=== PATIENT | male | born 1960 | race American Indian/Alaskan Native ===

== ENCOUNTER 2019-07-26 16:55 | Emergency (ER) | payer OTHER ==
[2019-07-26 18:57] LABS: Basophils % (Auto) 0.4 % (0.0-1.8); Eosinophils % (Auto) 0.4 % (0.0-4.3); Hematocrit 42.9 % (35.5-45.6); Hemoglobin 14.7 gm/dl (11.8-15.2); Lymphocytes # (Auto) 0.8 K/mm3 (1.2-5.4); Lymphocytes % (Auto) 20.4 % (13.4-35.0); Mean Corpuscular HGB Conc 34 % (32-34); Mean Corpuscular Volume 91 fl (84-94); Monocytes # (Auto) 0.2 K/mm3 (0.0-0.8); Monocytes % (Auto) 4.3 % (0.0-7.3); Platelet Count 194 K/mm3 (140-440); Red Blood Count 4.72 M/mm3 (3.65-5.03); Red Cell Distribution Width 12.8 % (13.2-15.2)
[2019-07-26 19:14] LABS: Alanine Aminotransferase 16 units/L (7-56); Albumin 4.4 g/dL (3.9-5); BUN/Creatinine Ratio 13; Blood Urea Nitrogen 10 mg/dL (9-20); Calcium 9.4 mg/dL (8.4-10.2); Hemolysis Index 15
[2019-07-26] MEDS ORDERED: METOCLOPRAMIDE 10 MG/2 ML INJ IV ONE (19:46)
[2019-07-26] MEDS ORDERED: SODIUM CHLORIDE 0.9% 1000 ML 1,000 ML IV ONE (19:46)
[2019-07-26] MEDS ORDERED: FAMOTIDINE 20 MG/2 ML INJ IV ONE (19:46)
[2019-07-26] MEDS ORDERED: diphenhydrAMINE 50 MG/ML VIAL IV ONE (19:46)
[2019-07-26] MEDS ORDERED: KETOROLAC 30 MG/1 ML INJ IV ONE (20:40)
--- NOTE | 2019-07-26 20:49 | Emergency Department Report ---
ED N/V/D HPI - General Chief complaint: Abdominal Pain Stated complaint: ABD PAIN Source: patient, EMS Mode of arrival: Wheelchair Limitations: No Limitations - History of Present Illness Initial comments: Patient is a 58-year-old -[place] male with no past medical history who presents to the ED with complaint of acute onset persistent intermittent nausea and vomiting and epigastric pain with persistent headache and generalized weakness for the last 12 hours. Patient states that almost 24 hours ago he returned from work and bought a sandwich at a restaurant and proceeded to eat the same sandwich. Patient states that about 12 hours ago when he woke up he started having persistent nausea and vomiting, epigastric pain and diarrhea. Patient states that the symptoms have been persistent and that he has not been able to keep anything down despite drinking Sprite. Patient denies dizziness, syncope, fever, chills, cough, chest pain, shortness of breath, change in vision or syncope, back pain or neck pain, dysuria, urinary frequency and urgency, hematochezia or hematemesis. MD complaint: nausea, vomiting, abdominal pain, other (Headache and generalized weakness) -: Sudden, hour(s) (12) Description of Vomiting: food contents, watery Description of Diarrhea: water Associated Abdominal Pain: Yes (Mildly epigastric) Location: epigastric Radiation: none Pain Scale: 6 Quality: aching, dull Improves with: none Worsens with: vomiting Context: possible food poisoning Associated Symptoms: denies other symptoms, myalgias, headaches, loss of appetite, malaise, nausea/vomiting. denies: chest pain, cough, diaphoresis, fever/chills, rash, dysuria, shortness of breath, syncope, weakness, other - Related Data Previous Rx's Medication Instructions Recorded Last Taken Type Butalb/Acetamin/Caff 50-325-40 1 - 2 tab PO Q6HR PRN #12 tab 07/26/19 Unknown Rx [Fioricet 50-325-40] Dicyclomine [Bentyl] 20 mg PO Q6H PRN #24 tablet 07/26/19 Unknown Rx Famotidine [Pepcid] 20 mg PO Q12H #30 tablet 07/26/19 Unknown Rx Ondansetron [Zofran Odt] 4 mg PO Q6HR PRN #20 tab.rapdis 07/26/19 Unknown Rx Allergies Allergy/AdvReac Type Severity Reaction Status Date / Time No Known Allergies Allergy Unverified 07/26/19 16:58 ED Review of Systems ROS: Stated complaint: ABD PAIN Other details as noted in HPI Constitutional: denies: chills, fever Eyes: denies: eye pain, eye discharge, vision change ENT: denies: ear pain, throat pain Respiratory: denies: cough, shortness of breath, wheezing Cardiovascular: denies: chest pain, palpitations Endocrine: no symptoms reported Gastrointestinal: abdominal pain (epigastric mild tenderness), nausea, vomiting. denies: diarrhea, hematemesis Genitourinary: denies: urgency, dysuria Musculoskeletal: denies: back pain, joint swelling, arthralgia Skin: denies: rash, lesions Neurological: denies: headache, weakness, paresthesias Psychiatric: denies: anxiety, depression Hematological/Lymphatic: denies: easy bleeding, easy bruising ED Past Medical Hx - Past Medical History Previous Medical History?: No - Surgical History Additional Surgical History: ROTATOR CUFF SURG IN 72 - Social History Smoking Status: Unknown if ever smoked Substance Use Type: None - Medications Home Medications: Home Medications Medication Instructions Recorded Confirmed Last Taken Type Butalb/Acetamin/Caff 50-325-40 1 - 2 tab PO Q6HR PRN #12 tab 07/26/19 Unknown Rx [Fioricet 50-325-40] Dicyclomine [Bentyl] 20 mg PO Q6H PRN #24 tablet 07/26/19 Unknown Rx Famotidine [Pepcid] 20 mg PO Q12H #30 tablet 07/26/19 Unknown Rx Ondansetron [Zofran Odt] 4 mg PO Q6HR PRN #20 tab.rapdis 07/26/19 Unknown Rx ED Physical Exam - General Limitations: No Limitations General appearance: alert, in no apparent distress - Head Head exam: Present: atraumatic, normocephalic, normal inspection - Eye Eye exam: Present: normal appearance, PERRL, EOMI Pupils: Present: normal accommodation - ENT ENT exam: Present: normal exam, normal orophraynx, mucous membranes moist, TM's normal bilaterally, normal external ear exam - Neck Neck exam: Present: normal inspection, full ROM - Respiratory Respiratory exam: Present: normal lung sounds bilaterally. Absent: respiratory distress, wheezes, rales, rhonchi, chest wall tenderness, accessory muscle use, decreased breath sounds - Cardiovascular Cardiovascular Exam: Present: regular rate, normal rhythm, normal heart sounds. Absent: systolic murmur, diastolic murmur, rubs, gallop - GI/Abdominal GI/Abdominal exam: Present: soft, normal bowel sounds. Absent: tenderness, guarding, rebound, hyperactive bowel sounds, hypoactive bowel sounds - Extremities Exam Extremities exam: Present: normal inspection, full ROM, normal capillary refill - Back Exam Back exam: Present: normal inspection, full ROM. Absent: tenderness, CVA tenderness (R), CVA tenderness (L), muscle spasm, paraspinal tenderness, vertebral tenderness - Neurological Exam Neurological exam: Present: alert, oriented X3, CN II-XII intact, normal gait, reflexes normal - Psychiatric Psychiatric exam: Present: normal affect, normal mood - Skin Skin exam: Present: warm, dry, intact, normal color. Absent: rash ED Course Vital Signs 07/26/19 17:19 Temperature 97.7 F Pulse Rate 65 Respiratory 18 Rate Blood Pressure 132/77 O2 Sat by Pulse 96 Oximetry ED Medical Decision Making - Lab Data Result diagrams: 07/26/19 18:29 07/26/19 18:29 - Medical Decision Making This is a 58-year-old male with no past medical history presents to the ED with complaint of acute onset persistent nausea and vomiting, diarrhea and mild epigastric pain persistently for the last 12 hours after eating food from a restaurant. In the ED, patient is alert and oriented x3 and is not in any distress with normal vital signs. Lab test results were reviewed and are all nonactionable. Patient was treated for nausea and vomiting, also given antacids and treated for pain. On reevaluation, patient pain is well controlled medications. Nausea and vomiting is also well controlled and patient is able to tolerate oral fluids. Patient was discharged home on antiemetics, antacids and pain medications and advised to maintain a complete liquid diet for 12 to 24 hours and take medications as instructed and follow-up with his primary care physician in 5 to 7 days for reevaluation or return to the ED immediately if symptoms get worse. - Differential Diagnosis Viral gastroenteritis; Dehydration; Gastritis; Critical care attestation.: If time is entered above; I have spent that time in minutes in the direct care of this critically ill patient, excluding procedure time. ED Disposition Clinical Impression: Nausea, vomiting and diarrhea, Viral gastroenteritis Tension type headache Qualifiers: Headache chronicity pattern: acute headache Intractability: not intractable Qualified Code(s): G44.209 - Tension-type headache, unspecified, not intractable Disposition: DC-01 TO HOME OR SELFCARE Is pt being admited?: No Does the pt Need Aspirin: No Condition: Stable Instructions: Acute Nausea and Vomiting (ED), Abdominal Pain (ED), Gastroenteritis (ED), Tension Headache (ED) Additional Instructions: Maintaining complete liquid diet for the next 12 to 24 hours, take medication with food, drink plenty of fluids and follow-up with your primary care physician in 7 to 10 days for reevaluation. Return to the ED immediately if symptoms get worse. Prescriptions: Dicyclomine [Bentyl] 20 mg PO Q6H PRN #24 tablet PRN Reason: Pain , Severe (7-10) Butalb/Acetamin/Caff 50-325-40 [Fioricet 50-325-40] 1 - 2 tab PO Q6HR PRN #12 tab PRN Reason: Headache Famotidine [Pepcid] 20 mg PO Q12H #30 tablet Ondansetron [Zofran Odt] 4 mg PO Q6HR PRN #20 tab.rapdis PRN Reason: Nausea Referrals: [facility] [Outside] - 7-10 days Time of Disposition: 20:51 Print Language: YORUBA
[2019-07-26 22:20] VITALS: BP 132/81
== END 2019-07-26 21:10 | disposition home or self-care (01) ==
LOC: ED 16:55
DX: G44.209 Tension-type headache, unspecified, not intractable (principal); R11.2 Nausea with vomiting, unspecified; R19.7 Diarrhea, unspecified; A08.4 Viral intestinal infection, unspecified; R53.1 Weakness; Z98.890 Other specified postprocedural states; Z79.899 Other long term (current) drug therapy
CPT/HCPCS: 36415; 80053; 83690; 85025; 96361; 96374; 96375; 99284; J1200; J1885; J2765; J7030